=== PATIENT | male | born 1995 | race African-American/Black ===

== ENCOUNTER 2021-03-23 07:19 | Emergency (ER) | payer MEDICAID ==
[~2021-03-23] VITALS: Ht 170.2 cm; Wt 77.3 kg
[2021-03-23 08:13] VITALS: BP 137/80
[2021-03-23 09:01] LABS: EOSINOPHILS % (AUTO) 3.7 % (1.0-6.0); HEMATOCRIT 48.2 % (41-53); HEMOGLOBIN 16.3 g/dL (13.5-17.5); LYMPHOCYTES # (AUTO) 1.7 K/uL (1.0-4.8); LYMPHOCYTES % (AUTO) 50.1 % (22.0-44.0); MEAN CORPUSCULAR HEMOGLOBIN 30.5 pg (26.0-34.0); MEAN CORPUSCULAR HGB CONC 33.7 G/dL (31.0-37.0); MEAN CORPUSCULAR VOLUME 91 fL (80-100); MONOCYTES # (AUTO) 0.4 K/uL (0.1-1.0); MONOCYTES % (AUTO) 11.6 % (2.0-9.0); NEUTROPHILS # (AUTO) 1.1 K/uL (1.8-7.7); NEUTROPHILS % (AUTO) 33.6 % (40.0-70.0); PLATELET COUNT (AUTO) 181 K/uL (150-450); RED BLOOD CELL COUNT(AUTO) 5.32 MIL/uL (4.50-5.90); RED CELL DISTRIBUTION WIDTH 13.4 % (11.5-14.5)
[2021-03-23 09:10] LABS: ANION GAP 5 mmol/L (8-16); CALCIUM, TOTAL 9.4 mg/dL (8.8-10.5); CARBON DIOXIDE 32 mmol/L (22-29); CHLORIDE 105 mmol/L (98-107); CREATININE 1.04 mg/dL (0.60-1.30); GLOMERULAR FILTR. RATE CALC > 60 mL/min (>60); GLUCOSE,RANDOM 103 mg/dL (70-110); POTASSIUM 4.5 mmol/L (3.5-5.1); SODIUM SERUM 142 mmol/L (136-145); UREA NITROGEN, BLOOD 10 mg/dL (7-18)
[2021-03-23 09:15] LABS: ALANINE AMINOTRANSFERASE 40 U/L (12-78); ALBUMIN 4.3 g/dL (3.4-5.0); ALKALINE PHOSPHATASE 66 U/L (46-116); ASPARTATE AMINOTRANSFERASE 26 U/L (15-37); BILIRUBIN,TOTAL 0.5 mg/dL (0.1-1.0); TOTAL PROTEIN, SERUM 8.4 g/dL (6.4-8.2)
== END 2021-03-23 10:47 | disposition home or self-care (01) ==
LOC: EMS 07:28
DX: R35.0 Frequency of micturition (principal)
CPT/HCPCS: 80053; 81002; 85025; 99283

== ENCOUNTER 2023-12-04 17:52 | Emergency (ER) | payer MEDICAID ==
[~2023-12-04] VITALS: Ht 175.3 cm; Wt 77.3 kg
[2023-12-04 18:10] VITALS: BP 139/64; PULSE 51; RESP 18; TEMP 98.3; O2SAT 98
[2023-12-04] MEDS ORDERED: BACL10TA PO (19:39)
[2023-12-04] MEDS ORDERED: IBUP-1492 PO (19:40)
== END 2023-12-04 20:20 | disposition home or self-care (01) ==
LOC: EMS 17:52
DX: M54.2 Cervicalgia (principal); M54.50 Low back pain, unspecified; V49.88XA Car occupant (driver) (passenger) injured in other specified transport accidents, initial encounter; Y93.89 Activity, other specified; Y92.89 Other specified places as the place of occurrence of the external cause; Y99.8 Other external cause status
CPT/HCPCS: 71046; 72040; 72100; 99284